=== PATIENT | female | born 1975 | race Caucasian/White ===

== ENCOUNTER → 2016-09-06 | Outpatient (CLI) | payer OTHER ==
--- NOTE | 2016-09-06 17:01 | US ---
Ultrasound Neck or Head Soft Tissue Clinical indication: Parotid lump. Left parotid cyst on outside CT, evaluate. Comparisons: None available. Findings: There is a cystic nodule with mural nodularity and septations that contained flow in the le ft parotid gland measuring 1.9 x 1.0 x 1.5. Lymphadenopathy is noted in the neck with the largest lym ph node measuring 1.7 x 3.5 cm. There is also a hyperemic lymph node that is palpable in the right ne ck measuring 1.4 x 0.4 x 2.0 cm. It is unclear based on an annotation whether this is a segment 2 or segment 5 lymph node. Other scattered lymph nodes are noted throughout the neck. Impression: Indeterminate mixed cystic solid nodule of the left parotid gland. There are septations w ith flow present. Differential includes pleomorphic adenoma, necrotic intraparotid lymph node, or les s likely a malignancy. MRI of the neck is recommended without and with contrast. Indeterminate adenop athy of the neck is also present. I have discussed these findings with Dr. Carcamo who agrees with the above. A Follow-Up Required test result notification was sent via the [employer] service, 4:53:45 PM, 09/06/2016, [employer] Message ID [id number].
== END ==
LOC: BRMIMAGING 14:42
PROVIDERS: ATTEND Internal Medicine Hematology & Oncology
DX: K11.8 Other diseases of salivary glands (principal)

== ENCOUNTER → 2016-09-18 | Outpatient (CLI) | payer OTHER ==
[~2016-09-18] MED LIST: GADOBUTROL 10 ML VIAL IVP ONE
--- NOTE | 2016-09-18 17:43 | MR ---
MRI of the Neck Without and With Contrast Enhancement HISTORY: Left parotid mass. COMPARISON: Ultrasound September 06, 2016. TECHNIQUE: Axial, coronal, and sagittal T1, T2 fat-suppressed, and postcontrast T1 fat-suppressed MR series of the neck soft tissues with the uneventful intravenous administration of 7 mL of Gadavist co ntrast. FINDINGS: In the superficial lobe of the left parotid gland there is a heterogenous solid 17 x 11 x 2 0 mm mass with well-defined smooth margins without extension into the deep lobe. The right parotid gland appears normal without additional masses. Bilateral submandibular glands appe ar normal without masses. There are multiple mildly prominent bilateral neck lymph nodes including in the submandibular, jugulo digastric, and posterior cervical spaces. A left jugulodigastric lymph node measures 13 x 7 mm and a right jugulodigastric lymph node measures 14 x 10 mm. In the left maxillary sinus there is a 2.1 x 1.3 cm mucous retention cyst. Thyroid gland appears homo geneous. True vocal cords appear symmetric. Airway is patent. Sagittal images demonstrate no destructive osseous lesions of the cervical spine. However there is mo derate degenerative disc disease with dorsal disc/osteophyte complexes at C3-C4, C4-C5 and C5-C6 with a C5-C6 left paramedian disc herniation, protrusion, resulting in mild to moderate central canal kia nosis, worse at C5-C6 and C6-C7. IMPRESSION: 1. 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 Recommend ENT surgical consult. 2. Several mildly prominent bilateral nonspecific lymphadenopathy. 3. Degenerative cervical spine with C6-C7 left paramedian disc herniation resulting in moderate centr al canal stenosis as described above.
== END ==
LOC: FIMAGING 07:20
PROVIDERS: ATTEND Internal Medicine Hematology & Oncology
DX: R22.1 Localized swelling, mass and lump, neck (principal)
CPT/HCPCS: A9585

== ENCOUNTER 2017-01-15 19:06 | Emergency (ER) | payer OTHER ==
[2017-01-15] MEDS ORDERED: NS 1,000 ML IV ONE (19:44)
[2017-01-15 20:05] LABS: COLOR YELLOW; LEUKOCYTE ESTERASE,URINE NEGATIVE (NEGATIVE); NITRITE,URINE NEGATIVE (NEGATIVE); PH,URINE 6.5 (5.0-7.5)
[2017-01-15 20:15] LABS: % IMMATURE GRANULYOCYTES 0.2 % (0.0-1.1); ABSOLUTE IMMATURE GRANULOCYTES 0.01 10^3/uL (0.00-0.10); ADD DIFF? NO; ADD MORPH? NO; ADD SCAN? NO; ATYPICAL LYMPHOCYTE FLAG 10 (0-99); FRAGMENT RBC FLAG 0 (0-99); HEMATOCRIT 38.5 % (38.0-47.0); HEMOGLOBIN 13.2 g/dL (12.6-16.3); LEFT SHIFT FLG 0 (0-99); LIPEMIA HEMOLYSIS FLAG 90 (0-99); MEAN CELL HEMOGLOBIN CONCENTR. 34.3 g/dL (32.4-36.7); MEAN CELL VOLUME 93.4 fL (81.5-99.8); PLATELET CLUMPS FLAG 0 (0-99); PLATELET COUNT 199 10^3/uL (150-400); RED BLOOD CELL COUNT 4.12 10^6/uL (4.18-5.33); RED CELL DISTRIBUTION WIDTH 12.3 % (11.5-15.2)
[2017-01-15 20:16] LABS: BACTERIA TRACE /hpf (NONE SEEN); MUCUS 1+ /lpf (NONE-1+); RBC,URINE 0-1 /hpf (0-3); WBC,URINE NONE SEEN /hpf (0-3)
[2017-01-15] MEDS ORDERED: HYOSCYAMINE SULFATE 0.125 MG TAB PO ONE (20:34)
--- NOTE | 2017-01-15 21:12 | EDPHY ---
H & P Stated Complaint: rlq pain x 3 hours, denies n/v Time Seen by Provider: 01/15/17 19:29 HPI/ROS: Patient reports onset of sharp right lower quadrant pain at 4:30 p.m. today day of evaluation. She reports that it was briefly severe intensity 10/10 for less than 5 minutes, but since that time there been. With absolutely no pain the most of the time she has had some discomfort it has been only moderate in intensity and arrival it is 3/10 in intensity and nonradiating. Symptoms worsened slightly with position with more discomfort flexing for then extending slightly worse with walking. She does not recall having this pain before. She notes no exacerbating or alleviating factors other than what is mention. She felt well prior to the onset of the symptoms. She notes no other associated symptoms currently. ROS: No fevers chills or other constitutional symptoms HEENT: She reports that she had a bloody nose for about 30 minutes at 4:30 a.m. that since resolved. She typically has a few bloody noses a year. Pulmonary: She reports a 2 week history of a mild dry cough that has now resolved. No other pulmonary symptoms GI: She reports no upper belly pain. She reports no radiation of her right lower quadrant pain. She reports no nausea or vomiting. She has normal bowel movements. : Last menstrual period was normal timing 1 week ago. She has no vaginal discharge. No dysuria frequency or urgency. Musculoskeletal: No complaints. She has no back pain. No flank pain. 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 Eyes: Pupils equal and round no pallor or injection. ENT, Mouth: Mucous membranes moist. Respiratory: There are no retractions, lungs are clear to auscultation. Cardiovascular: Regular rate and rhythm. Gastrointestinal: Hyperactive bowel sounds. Patient has mild right lower quadrant tenderness with no guarding or rebound. Rovsing's is negative. Back: No CVA tenderness Neurological: GCS 15 with no deficits Skin: Warm and dry, no rashes. Musculoskeletal: Neck is supple nontender. Extremities are symmetrical, full range of motion. Psychiatric: Mood and affect are normal DIFFERENTIAL DIAGNOSIS: After history and physical exam differential diagnosis was considered for viral GI illness causing hyper motility, food intolerance causing hyper motility, early appendicitis, ectopic , ovarian cyst, ruptured ovarian cyst, ureteral stone, pelvic thromboembolic phenomenon, UTI Constitutional: Initial Vital Signs Temperature (C) 36.6 C 01/15/17 19:25 Heart Rate 88 01/15/17 19:25 Respiratory Rate 18 01/15/17 19:25 Blood Pressure 120/77 01/15/17 19:25 O2 Sat (%) 98 01/15/17 19:25 O2 Delivery Mode Room Air Allergies/Adverse Reactions: codeine Allergy (Verified 01/15/17 19:24) Home Medications: Medication Instructions Recorded AMITRIPTYLINE HCL [Amitriptyline 01/15/17 100 mg] Rivaroxaban [Xarelto 10mg (*)] 01/15/17 Medical Decision Making ED Course/Re-evaluation: IV normal saline, Zofran 4 mg IV Patient spontaneously improved significantly. Review of her CBC reveals a normal CBC, negative urine and urinalysis with minimal microscopic hematuria. Had a prolonged conversation with the patient counseling regarding lab results and her current clinical status which is improving with continue hyperactive bowel sounds. We did discuss imaging. Patient is treated with Levsin with further improvement in her pain to the point of resolution. She is able to jump up and down without significant pain feels much improved. Discussion: Patient has a new onset of right lower quadrant pain with no significant associated findings except microscopic hematuria and had spontaneous improvement here without significant intervention. She was given no analgesics other than Levsin and the patient reported that she feels her discomfort id basically resolved to the point of minimal discomfort prior to the Levsin. I explained that we cannot entirely rule out early appendicitis without imaging, but I think this is unlikely given her intermittent symptoms and benign finding so far. We ruled out ectopic UTI. She currently does not have a surgical abdomen. We also discussed the possibility of ovarian pathology, ureteral stone or other. Patient will have close follow up with her primary care physician will return if she has any significant recurrence of her symptoms to pursue further workup that time. At the time discharge patient feels comfortable without any significant discomfort with her nausea resolved. - Data Points Laboratory Results: Laboratory Results 01/15/17 20:05 01/15/17 01/15/17 01/15/17 20:05 19:45 19:45 WBC 5.77 10^3/uL 10^3/uL (3.80-9.50) RBC 4.12 10^6/uL L 10^6/uL (4.18-5.33) Hgb 13.2 g/dL g/dL (12.6-16.3) Hct 38.5 % % (38.0-47.0) MCV 93.4 fL fL (81.5-99.8) MCH 32.0 pg pg (27.9-34.1) MCHC 34.3 g/dL g/dL (32.4-36.7) RDW 12.3 % % (11.5-15.2) Plt Count 199 10^3/uL 10^3/uL (150-400) MPV 11.0 fL fL (8.7-11.7) Neut % (Auto) 69.7 % % (39.3-74.2) Lymph % (Auto) 18.5 % % (15.0-45.0) [place] % (Auto) 8.1 % % (4.5-13.0) Eos % (Auto) 2.8 % % (0.6-7.6) Baso % (Auto) 0.7 % % (0.3-1.7) Nucleat RBC Rel Count 0.0 % % (0.0-0.2) Absolute Neuts (auto) 4.02 10^3/uL 10^3/uL (1.70-6.50) Absolute Lymphs (auto) 1.07 10^3/uL 10^3/uL (1.00-3.00) Absolute Monos (auto) 0.47 10^3/uL 10^3/uL (0.30-0.80) Absolute Eos (auto) 0.16 10^3/uL 10^3/uL (0.03-0.40) Absolute Basos (auto) 0.04 10^3/uL 10^3/uL (0.02-0.10) Absolute Nucleated RBC 0.00 10^3/uL 10^3/uL (0-0.01) Immature Gran % 0.2 % % (0.0-1.1) Immature Gran # 0.01 10^3/uL 10^3/uL (0.00-0.10) Urine Color YELLOW Urine Appearance CLEAR Urine pH 6.5 (5.0-7.5) Ur Specific Harmony 1.010 (1.002-1.030) Urine Protein NEGATIVE (NEGATIVE) Urine Ketones NEGATIVE (NEGATIVE) Urine Blood 1+ H (NEGATIVE) Urine Nitrate NEGATIVE (NEGATIVE) Urine Bilirubin NEGATIVE (NEGATIVE) Urine Urobilinogen 0.2 EU EU (0.2-1.0) Ur Leukocyte Esterase NEGATIVE (NEGATIVE) Urine RBC 0-1 /hpf /hpf (0-3) Urine WBC NONE SEEN /hpf /hpf (0-3) Ur Epithelial Cells 1+ /lpf /lpf (NONE-1+) Urine Bacteria TRACE /hpf H /hpf (NONE SEEN) Urine Mucus 1+ /lpf /lpf (NONE-1+) Urine Glucose NEGATIVE (NEGATIVE) Urine Test NEGATIVE Medications Given: Discontinued Medications Hyoscyamine Sulfate (Levsin, Hyomax-Sl) 0.125 mg PO EDNOW ONE Stop: 01/15/17 20:35 Last Admin: 01/15/17 20:40 Dose: 0.125 mg Sodium Chloride (Ns) 1,000 mls @ 0 mls/hr IV ONCE ONE PRN Reason: Wide Open Stop: 01/15/17 19:45 Last Admin: 01/15/17 20:07 Dose: 1,000 mls Departure - Departure Disposition: Home, Routine, Self-Care Clinical Impression: Right lower quadrant abdominal pain Condition: Good Instructions: Abdominal Pain (ED) Additional Instructions: Diagnosis: Right lower quadrant abdominal pain Your blood count tonight is normal. Your test is negative, your urine has very minimal microscopic hematuria. We discussed imaging, but given your spontaneous improvement we will hold on imaging tonight, pending any recurrence of your symptoms. Plan: Call Dr. Lopez to arrange follow-up appointment for 2-4 days from now for recheck. Return to the emergency department if you have any significant worsening or recurrent abdominal pain In particular, return if he develops fevers, nausea or vomiting, pain that worsens with movement or other concerns. Referrals: Minal Lopez MD [Primary Care Provider] - As per Instructions
[2017-01-15 21:31] VITALS: BP 115/70; PULSE 72; RESP 14; TEMP 98.2; O2SAT 97
== END 2017-01-15 21:30 | disposition home or self-care (01) ==
LOC: CED 19:06
DX: R10.31 Right lower quadrant pain (principal); Z79.01 Long term (current) use of anticoagulants
CPT/HCPCS: 81003-PO; 81015-PO; 81025-PO; 85025-PO

== ENCOUNTER → 2017-11-18 | Outpatient (CLI) | payer OTHER | LOC: CIMAGING 08:58 | PROVIDERS: ATTEND Otolaryngology | DX: K11.6 Mucocele of salivary gland (principal) | CPT/HCPCS: 76536-PO ==

== ENCOUNTER → 2018-01-05 | Outpatient (CLI) | payer OTHER ==
[~2018-01-05] MED LIST changes: -GADOBUTROL 10 ML VIAL IVP ONE; +LIDOCAINE 1% 300 MG/30 ML SDV ONE
--- NOTE | 2018-01-05 13:28 | PDRADPN ---
Radiology Procedure Note Date of Procedure: 01/05/18 Radiologist: Alex Hogue Anesthesia: Local (Specify) Pre-op Diagnosis: left parotid cyst Post-op Diagnosis: same Indication: cytology requested Procedure: US aspiration Finding(s): 20G needle aspiration of 8mm left parotid cyst. 2cc of clear fluid retreived. Inf/Abcess present in the surg proc area at time of surgery?: No Complications: none Specimen(s): yes
== END ==
LOC: FIMAGING 12:07
PROVIDERS: ATTEND Otolaryngology
PROC: 0C993ZX Drainage of Left Parotid Gland, Percutaneous Approach, Diagnostic (ICD-10-PCS; principal; 2018-01-05)
DX: K11.8 Other diseases of salivary glands (principal)

== ENCOUNTER 2018-09-06 11:55 | Emergency (ER) | payer OTHER ==
--- NOTE | 2018-09-06 13:00 | CPEKG ---
Test Reason : OPEN Blood Pressure : / mmHG Vent. Rate : 075 BPM Atrial Rate : 075 BPM P-R Int : 170 ms QRS Dur : 091 ms QT Int : 388 ms P-R-T Axes : 030 080 019 degrees QTc Int : 434 ms Sinus rhythm Low voltage, extremity and precordial leads Confirmed by Ra Santa ([id number]) on 09/06/2018 12:59:42 PM Referred By: Confirmed By:Ra Santa
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
[2018-09-06] MEDS ORDERED: NS 1,000 ML IV ONE (13:47)
[2018-09-06 16:23] VITALS: BP 105/84
== END 2018-09-06 14:30 | disposition home or self-care (01) ==
LOC: CED 11:55
DX: R42 Dizziness and giddiness (principal); E86.9 Volume depletion, unspecified
CPT/HCPCS: 70450-PO; 71046-PO; 80048-ER; 84484-ER; 96360-ER